=== PATIENT | male | born 1990 | race Hispanic/Latino ===

== ENCOUNTER → 2024-05-09 | Outpatient (CLI) | payer BC ==
[~2024-05-09] MED LIST: IOHEXOL 350 MG/ML 100ML INFUS..BTL IV ONE
--- NOTE | 2024-05-09 12:37 | HMCIMG ---
CT ABDOMEN/PELVIS W/WO CONTRAS HISTORY: Respiratory failure COMPARISON: None TECHNIQUE: Multiple sequential axial images of the abdomen and pelvis were obtained from the dome of the diaphragm through symphysis pubis. Patient was given 100 cc of Omnipaque through intravenous route. Oral contrast was given. FINDINGS: No pleural effusion is seen bilaterally. There is no evidence of parenchymal disease or pulmonary nodule of the visualized lower lungs. Degenerative changes of the thoracolumbar spine are present. The heart is not enlarged. The liver, spleen, adrenal glands and pancreas are unremarkable. There is no evidence of hydronephrosis bilaterally. No evidence of renal stone is seen. Fecal material is seen in the colon. There are normal size retroperitoneal and mesenteric lymph nodes. No ascites is seen. Appendix appears to be prominent measuring 2.5 mm. There is adjacent mesenteric fat stranding may be related to acute appendicitis versus inflammatory bowel disease. Clinical correlation is recommended. Pelvic sidewalls are symmetric bilaterally. Bladder is poorly distended. No bowel obstruction is seen. IMPRESSION: 1. Appendix appears to be prominent measuring 2.5 mm. There is adjacent mesenteric fat stranding may be related to acute appendicitis versus inflammatory bowel disease. Clinical correlation is recommended. Report was given to critical care team. CT was performed with one or more following dose reduction techniques: automated exposure control, adjustment of the mA and kv according to patient's size, or use of a iterative reconstruction technique.
--- NOTE | 2024-05-09 12:52 | NUR ---
NURSE GONZALES WITH DR. REYNOLDS OFFICE GIVEN CRITICAL FINDINGS WITH VERBAL READBACK. DR. REYNOLDS MADE AWARE WILL REACH OUT TO PATIENT FOR FDURTHE ACTION Addendum: 05/09/24 at 1253 by LAURENT CONNER FURTHER ACTION
== END | disposition home or self-care (01) ==
LOC: RAH 10:33
PROVIDERS: ATTEND Internal Medicine
DX: R10.11 Right upper quadrant pain (principal); M47.815 Spondylosis without myelopathy or radiculopathy, thoracolumbar region
CPT/HCPCS: 74178; Q9967